=== PATIENT | female | born 1960 | race Caucasian/White ===

== ENCOUNTER 2018-11-04 12:52 | Outpatient (CLI) | payer BC | END 2018-11-04 23:59 | disposition home or self-care (01) | LOC: VAS 12:52 | PROVIDERS: ATTEND Family Medicine | DX: I87.8 Other specified disorders of veins (principal); M17.0 Bilateral primary osteoarthritis of knee; M76.61 Achilles tendinitis, right leg | CPT/HCPCS: 93970 ==

== ENCOUNTER 2020-10-17 11:12 | Outpatient (CLI) | payer BC | END 2020-10-17 23:59 | disposition home or self-care (01) | LOC: VAS 11:12 | PROVIDERS: ATTEND Family Medicine | DX: M79.604 Pain in right leg (principal); R20.0 Anesthesia of skin; M79.89 Other specified soft tissue disorders; I87.8 Other specified disorders of veins; W19.XXXA Unspecified fall, initial encounter | CPT/HCPCS: 93971 ==

== ENCOUNTER 2022-04-09 14:47 | Emergency (ER) | payer BC ==
[~2022-04-09] VITALS: Ht 167.6 cm; Wt 120.0 kg
[2022-04-09 15:03] VITALS: BP 163/83
== END 2022-04-09 18:47 | disposition home or self-care (01) ==
LOC: ER 14:48
DX: M79.604 Pain in right leg (principal); F41.9 Anxiety disorder, unspecified; Z90.49 Acquired absence of other specified parts of digestive tract; Z88.2 Allergy status to sulfonamides; Z88.1 Allergy status to other antibiotic agents; Z79.899 Other long term (current) drug therapy
CPT/HCPCS: 93971; 99284

== ENCOUNTER 2023-04-06 12:05 | Emergency (ER) | payer BC ==
[~2023-04-06] VITALS: Ht 167.6 cm; Wt 123.6 kg
[2023-04-06 12:11] VITALS: BP 161/79; PULSE 84; RESP 16; TEMP 97.5; O2SAT 99
== END 2023-04-06 18:08 | disposition home or self-care (01) ==
LOC: ER 12:06
DX: I83.891 Varicose veins of right lower extremity with other complications (principal); Z88.2 Allergy status to sulfonamides; Z88.1 Allergy status to other antibiotic agents; Z90.49 Acquired absence of other specified parts of digestive tract
CPT/HCPCS: 93971; 99284